=== PATIENT | male | born 1975 | race Caucasian/White ===

== ENCOUNTER 2017-08-21 22:25 | Emergency (ER) | payer OTHER ==
[2017-08-21] MEDS: LIDOCAINE 1%/EPI 30 ML INJ INJ (23:01)
[2017-08-22] MEDS: HYDROCODONE/APAP (5/325) TAB PO (01:01)
== END 2017-08-22 02:15 | disposition home or self-care (01) ==
LOC: E/R 08-22 02:15
DX: S01.81XA Laceration without foreign body of other part of head, initial encounter (principal); F17.210 Nicotine dependence, cigarettes, uncomplicated; R07.9 Chest pain, unspecified; Y04.8XXA Assault by other bodily force, initial encounter
CPT/HCPCS: 12014; 70450; 70486; 71045; 72125; 99285-25